=== PATIENT | male | born 1965 | race Hispanic/Latino ===

== ENCOUNTER 2017-04-25 00:19 | Emergency (ER) | payer SELFPAY | END 2017-04-25 01:19 | disposition home or self-care (01) | LOC: MADERS 00:19 | DX: R44.0 Auditory hallucinations (principal); Z79.899 Other long term (current) drug therapy; K74.60 Unspecified cirrhosis of liver | CPT/HCPCS: 99284 ==

== ENCOUNTER 2017-07-29 06:08 | Emergency (ER) | payer SELFPAY ==
[2017-07-29] MEDS ORDERED: Bacitracin Zinc 1 Packet ONE ×2 (06:53→06:54)
[2017-07-29] MEDS ORDERED: HYDROcodone/Acetaminophen 5/325 mg Tablet ONE (07:08)
[2017-07-29] MEDS ORDERED: Acetaminophen 325 MG TAB ONE (07:08)
== END 2017-07-29 07:20 | disposition home or self-care (01) ==
LOC: MADERS 06:08
DX: I87.2 Venous insufficiency (chronic) (peripheral) (principal)
CPT/HCPCS: 99283

== ENCOUNTER 2017-10-07 19:25 | Emergency (ER) | payer SELFPAY ==
[2017-10-07] MEDS ORDERED: HYDROcodone/Acetaminophen 10/325 mg Tablet ONE (20:32)
== END 2017-10-07 20:45 | disposition home or self-care (01) ==
LOC: MADERS 19:25
DX: I83.018 Varicose veins of right lower extremity with ulcer other part of lower leg (principal); I83.028 Varicose veins of left lower extremity with ulcer other part of lower leg; K74.60 Unspecified cirrhosis of liver
CPT/HCPCS: 99283

== ENCOUNTER 2018-01-16 02:01 | Emergency (ER) | payer SELFPAY | END 2018-01-16 02:45 | disposition home or self-care (01) | LOC: MADERS 02:01 | DX: Z00.8 Encounter for other general examination (principal); F32.9 Major depressive disorder, single episode, unspecified; K74.60 Unspecified cirrhosis of liver | CPT/HCPCS: 99281 ==

== ENCOUNTER 2018-01-28 04:07 | Emergency (ER) | payer SELFPAY ==
[2018-01-28] MEDS ORDERED: Morphine 4 MG/ML VIAL ONE (04:35)
[2018-01-28 05:10] LABS: ALT (SGPT) 54 U/L (8-55); AST (SGOT) 103 U/L (5-34); Albumin 3.1 g/dL (3.5-5.0); Alkaline Phosphatase 150 U/L (40-150); Anion Gap 12 mmol/L (10-20); BUN (Urea Nitrogen) 16 mg/dL (8.4-25.7); Bilirubin, Total 1.1 mg/dL (0.2-1.2); Calc. Creatinine Clearance 0 mL/min (70-130); Calcium 8.8 mg/dL (7.8-10.44); Carbon Dioxide 22 mmol/L (22-29); Chloride 112 mmol/L (98-107); Eosinophils 32 % (0-10); Estimated GFR-MDRD Greater than 90; Glucose 91 mg/dL (70-105); Hemoglobin 11.9 g/dL (14.0-18.0); Lymphocytes 30 % (21-51); MDiff Complete? YES; Mean Corpuscular HGB CONC 33.9 g/dL (32.0-36.0); Mean Corpuscular Hemoglobin 30.6 pg (27.0-31.0); Mean Corpuscular Volume 90.4 fL (78.0-98.0); Mean Platelet Volume 5.8 fL (7.4-10.4); Monocytes 4 % (0-10); Neutrophil 30 % (42-75); PLT Morphology Comment Appears Adequate; Platelet Count 249 thou/uL (130-400); Potassium 3.6 mmol/L (3.5-5.1); Protein, Total 7.1 g/dL (6.0-8.3); RBC Morphology Normal; Reactive Lymphocytes 4 % (0-10); Sodium 142 mmol/L (136-145); White Blood Cell (WBC) Count 7.3 thou/uL (4.8-10.8)
== END 2018-01-28 05:45 | disposition home or self-care (01) ==
LOC: MADERS 04:07
DX: I87.8 Other specified disorders of veins (principal); G89.29 Other chronic pain; F32.9 Major depressive disorder, single episode, unspecified; Z79.899 Other long term (current) drug therapy
CPT/HCPCS: 36415; 80053; 85025; 85652; 96372; J2270

== ENCOUNTER 2018-02-19 01:16 | Emergency (ER) | payer SELFPAY ==
[2018-02-19] MEDS ORDERED: Acetaminophen 500 MG TAB ONE (01:27)
[2018-02-19] MEDS ORDERED: Ibuprofen 800 MG TAB ONE (01:27)
== END 2018-02-19 01:56 | disposition home or self-care (01) ==
LOC: MADERS 01:16
DX: G89.29 Other chronic pain (principal); M79.604 Pain in right leg; F32.9 Major depressive disorder, single episode, unspecified; Z79.899 Other long term (current) drug therapy
CPT/HCPCS: 99283

== ENCOUNTER 2018-02-26 11:16 | Emergency (ER) | payer SELFPAY ==
[2018-02-26] MEDS ORDERED: Nitroglycerin 0.4 MG TAB (25 Tab Bottle) ONE (11:42)
[2018-02-26] MEDS ORDERED: Donnatal Elixir 16.2 MG/5 ML UDCUP ONE (11:43)
[2018-02-26] MEDS ORDERED: Mag-Al Plus 1200 MG/1200 MG/120 MG/30 ML UDCUP ONE (11:43)
[2018-02-26] MEDS ORDERED: Lidocaine Viscous Sol 2% 15 ml UD Cup ONE (11:43)
[2018-02-26 11:56] LABS: #Basophils 0.1 thou/uL (0.0-0.2); #Eosinphils 0.1 thou/uL (0.0-0.7); #Lymphocytes 0.3 thou/uL (1.20-3.40); #Monocytes 0.2 thou/uL (0.11-0.59); #Neutrophils 12.1 thou/uL (1.40-6.50); %Basophils 0.8 % (0.0-1.0); %Eosinophils 0.9 % (0.0-10.0); %Monocytes 1.2 % (0.0-10.0); %Neutrophils 95.1 % (42.0-75.0); Hemoglobin 12.6 g/dL (14.0-18.0); Mean Corpuscular HGB CONC 33.2 g/dL (32.0-36.0); Mean Corpuscular Hemoglobin 30.6 pg (27.0-31.0); Mean Corpuscular Volume 92.2 fL (78.0-98.0); Mean Platelet Volume 6.8 fL (7.4-10.4); Platelet Count 127 thou/uL (130-400); RBC Distribution Width 13.3 % (11.5-14.5); White Blood Cell (WBC) Count 12.7 thou/uL (4.8-10.8)
[2018-02-26] MEDS ORDERED: Sodium Chloride 0.9% 1,000 ML BAG ONE (12:00)
[2018-02-26] MEDS ORDERED: Sodium Chloride 0.9% 100 ML BAG ONE (12:00)
[2018-02-26] MEDS ORDERED: Nitroglycerin 2% Ointment 1 INCH/1 GM Packet ONE (12:01)
--- NOTE | 2018-02-26 12:06 | RAD ---
CHEST ONE VIEW: Indication: Chest pain Comparison: None FINDINGS: The right lung apex is excluded. Left lung is clear. Heart size is accentuated by exam technique. No definite pleural effusion or pneumothorax is evident. No acute osseous abnormality is evident. IMPRESSION: 1. Limitation of exam. 2. Mild prominence of the cardiac silhouette, much of which is related to technique. No definite acut e abnormality. POS: [facility]
[2018-02-26 12:07] LABS: ALT (SGPT) 43 U/L (8-55); AST (SGOT) 75 U/L (5-34); Albumin 3.1 g/dL (3.5-5.0); Alkaline Phosphatase 166 U/L (40-150); Anion Gap 15 mmol/L (10-20); BUN (Urea Nitrogen) 19 mg/dL (8.4-25.7); Bilirubin, Total 1.7 mg/dL (0.2-1.2); CK (CPK) 47 U/L (30-200); Calc. Creatinine Clearance 0 mL/min (70-130); Calcium 9.2 mg/dL (7.8-10.44); Carbon Dioxide 21 mmol/L (22-29); Chloride 107 mmol/L (98-107); Estimated GFR-MDRD Greater than 90; Globulin 4.4 g/dL (2.4-3.5); Glucose 127 mg/dL (70-105); Lipase 6 U/L (8-78); Potassium 3.6 mmol/L (3.5-5.1); Protein, Total 7.5 g/dL (6.0-8.3); Sodium 139 mmol/L (136-145)
[2018-02-26 12:10] LABS: CKMB 0.4 ng/mL (0-6.6); Troponin I 0.055 ng/mL (< 0.028)
[2018-02-26] MEDS ORDERED: Piperacillin/Tazobactam 3.375 GM VIAL ONE (12:52)
[2018-02-26 13:31] LABS: Bilirubin Negative (Negative); Blood, Urine Negative (Negative); Clarity Clear (Clear); Glucose, Urine (Dipstick) Negative (Negative); Leukocyte Negative (Negative); Nitrite Negative (Negative); Protein, Urine (Dipstick) Negative (Neg-Trace); Specific Gravity, Urine 1.025 (1.005-1.030)
--- NOTE | 2018-02-26 14:48 | CT ---
CT ANGIOGRAM OF CHEST: Date: 02/26/18 HISTORY: Shortness of breath, chest pain, and fever. Cirrhosis. GI bleed. COMPARISON: None. FINDINGS: CT angiogram chest performed after the intravenous administration of contrast. 3D rendering provided. Evaluation for distal embolism is limited due to phase of contrast. No proximal segmental pulmonary arterial filling defect. No pericardial effusion. The pulmonary trunk measures over 3.0 cm, abnormally dilated. Mild esophageal varices. Mild atelectatic changes in the lung bases. No pneumothorax. No effusion. No thoracic spine compression fracture. No displaced rib fracture. IMPRESSION: 1. Within limits of this exam, no proximal segmental pulmonary arterial filling defect. 2. No acute inflammatory process in the chest. 3. Moderate cardiomegaly. 4. Dilatation of pulmonary arteries suggest pulmonary arterial hypertension. POS: [facility]
--- NOTE | 2018-02-26 14:51 | CT ---
CONTRAST ENHANCED ABDOMEN AND PELVIS CT: Date: 02/26/18 INDICATION: Pain, hepatitis C, and cirrhosis. FINDINGS: There is cirrhotic morphology of the liver and an indwelling TIPS is in place. There is moderate dist ention of the gallbladder. Spleen is enlarged in size. Splenic varices are seen. Delayed phase contra st imaging of the kidneys limits assessment. There is streak artifact emanating from the left upper q uadrant, which limits visualization in this region. No free air. Bowel is limited in assessment witho ut enteric contrast. There is no ascites. Pleural based irregularity of the imaged lung bases is seen , which may be related to atelectasis. There is osseous degenerative change. IMPRESSION: 1. Cirrhotic morphology of the liver and evidence of portal hypertension. 2. TIPS stent is in place. POS: [facility]
== END 2018-02-26 14:10 | disposition home or self-care (01) ==
LOC: MADERS 11:16
DX: A41.9 Sepsis, unspecified organism (principal); R07.9 Chest pain, unspecified; I25.10 Atherosclerotic heart disease of native coronary artery without angina pectoris; F32.9 Major depressive disorder, single episode, unspecified; Z79.899 Other long term (current) drug therapy
CPT/HCPCS: 36415; 71045; 71275; 74176; 80053; 81003; 82274; 82553; 83605; 83690; 83880; 84484; 85025; 87040; 87086; 93005; 94760; 96365; J1956; J2543; J7050

== ENCOUNTER 2018-10-10 19:01 | Emergency (ER) | payer SELFPAY ==
[2018-10-10 19:22] LABS: Amphetamine Detected (NotDetected); Barbiturates Screen Not Detected (NotDetected); Benzodiazepine Screen Not Detected (NotDetected); Cocaine Metabolite Screen Not Detected (NotDetected); Methadone Not Detected (NotDetected); Methamphetamine Detected (NotDetected); Opiate Screen Not Detected (NotDetected); Phencyclidine (PCP) Not Detected (NotDetected); THC/Cannabinoid Screen Not Detected (NotDetected); Tricyclic Screen Not Detected (NotDetected)
[2018-10-10 19:23] LABS: Medtox Control Line Valid? VALID (VALID); Oxycodone Screen Not Detected (NotDetected)
[2018-10-10 19:28] LABS: #Basophils 0.1 thou/uL (0.0-0.2); #Eosinphils 0.7 thou/uL (0.0-0.7); #Lymphocytes 1.5 thou/uL (1.20-3.40); #Monocytes 0.3 thou/uL (0.11-0.59); #Neutrophils 1.2 thou/uL (1.40-6.50); %Basophils 2.8 % (0.0-1.0); %Eosinophils 17.7 % (0.0-10.0); %Lymphocytes 39.4 % (21.0-51.0); %Monocytes 7.5 % (0.0-10.0); %Neutrophils 32.7 % (42.0-75.0); Hemoglobin 10.8 g/dL (14.0-18.0); Mean Corpuscular HGB CONC 34.7 g/dL (32.0-36.0); Mean Corpuscular Hemoglobin 31.7 pg (27.0-31.0); Mean Corpuscular Volume 91.4 fL (78.0-98.0); Mean Platelet Volume 5.3 fL (7.4-10.4); Platelet Count 277 thou/uL (130-400); RBC Distribution Width 12.4 % (11.5-14.5); White Blood Cell (WBC) Count 3.7 thou/uL (4.8-10.8)
[2018-10-10 19:29] LABS: Bilirubin Small (Negative); Blood, Urine Negative (Negative); Clarity Clear (Clear); Glucose, Urine (Dipstick) Negative (Negative); Leukocyte Negative (Negative); Nitrite Negative (Negative); Protein, Urine (Dipstick) Negative (Neg-Trace)
[2018-10-10 19:31] LABS: Specific Gravity, Urine 1.025 (1.002-1.036)
[2018-10-10 19:39] LABS: Acetaminophen Less than 6.0 mcg/mL (10.0-30.0); Alcohol 14 mg/dL (Less than 10); Salicylate Less than 8.0 mg/dL (15.0-30.0)
[2018-10-10 19:41] LABS: ALT (SGPT) 33 U/L (8-55); AST (SGOT) 60 U/L (5-34); Albumin 2.8 g/dL (3.5-5.0); Alkaline Phosphatase 156 U/L (40-150); Anion Gap 12 mmol/L (10-20); BUN (Urea Nitrogen) 12 mg/dL (8.4-25.7); Bilirubin, Total 0.7 mg/dL (0.2-1.2); Calc. Creatinine Clearance 0 mL/min (70-130); Calcium 8.2 mg/dL (7.8-10.44); Carbon Dioxide 21 mmol/L (22-29); Chloride 112 mmol/L (98-107); Estimated GFR-MDRD Greater than 90; Globulin 4.3 g/dL (2.4-3.5); Glucose 98 mg/dL (70-105); Potassium 3.3 mmol/L (3.5-5.1); Protein, Total 7.1 g/dL (6.0-8.3); Sodium 142 mmol/L (136-145)
[2018-10-10] MEDS ORDERED: Potassium Chloride 20 MEQ TAB ONE (20:06)
[2018-10-10] MEDS ORDERED: Lorazepam 2 MG/ML VIAL ONE (21:52)
== END 2018-10-10 22:47 | disposition short-term general hospital (02) ==
LOC: MADERS 19:01
DX: R45.851 Suicidal ideations (principal); E87.6 Hypokalemia; I25.10 Atherosclerotic heart disease of native coronary artery without angina pectoris; F32.9 Major depressive disorder, single episode, unspecified; Z79.899 Other long term (current) drug therapy
CPT/HCPCS: 36415; 80053; 80306; 80307; 81003; 85025; 96372; J2060

== ENCOUNTER 2019-01-30 16:46 | Emergency (ER) | payer SELFPAY ==
[~2019-01-30 16:46] MED LIST: Iopamidol 370 76% 100 ML VIAL ONE; Sodium Chloride 0.9% 1,000 ML BAG ONE; Sodium Chloride 0.9% 100 ML BAG ONE; Sodium Chloride 0.9% 500 ML BAG ONE
[2019-01-30] MEDS ORDERED: Acetaminophen 500 MG TAB ONE (17:04)
[2019-01-30 17:17] LABS: #Basophils 0.1 thou/uL (0.0-0.2); #Eosinphils 0.8 thou/uL (0.0-0.7); #Lymphocytes 0.5 thou/uL (1.20-3.40); #Monocytes 0.3 thou/uL (0.11-0.59); #Neutrophils 6.1 thou/uL (1.40-6.50); %Eosinophils 10.7 % (0.0-10.0); %Lymphocytes 6.4 % (21.0-51.0); %Neutrophils 77.9 % (42.0-75.0); Hemoglobin 11.1 g/dL (14.0-18.0); Mean Corpuscular HGB CONC 33.9 g/dL (32.0-36.0); Mean Corpuscular Hemoglobin 31.1 pg (27.0-31.0); Mean Corpuscular Volume 91.8 fL (78.0-98.0); Mean Platelet Volume 5.4 fL (7.4-10.4); Platelet Count 180 thou/uL (130-400); RBC Distribution Width 13.2 % (11.5-14.5); Red Blood Cell (RBC) Count 3.57 mill/uL (4.70-6.10); White Blood Cell (WBC) Count 7.8 thou/uL (4.8-10.8)
[2019-01-30 17:29] LABS: INR-International Normal Ratio 1.3; Prothrombin Time 16.4 SEC (12.0-14.7)
--- NOTE | 2019-01-30 17:32 | RAD ---
EXAM: Right tibia and fibula 2 views: HISTORY: Infection COMPARISON: None FINDINGS: Diffuse subcutaneous fat stranding and swelling. No evidence for bony erosive or destructive changes. Degenerative changes. No acute fracture or dislocation or other significant acute osseous abnormality. IMPRESSION: Diffuse subcutaneous soft tissue swelling, given history of infection is certainly could represent ce llulitis.
[2019-01-30] MEDS ORDERED: Fentanyl 100 MCG/2 ML VIAL ONE (17:34)
[2019-01-30] MEDS ORDERED: Piperacillin/Tazobactam 4.5 GM VIAL ONE ×2 (17:34→17:36)
[2019-01-30] MEDS ORDERED: Vancomycin HCl 500 MG VIAL ONE (17:34)
[2019-01-30 17:35] LABS: ALT (SGPT) 79 U/L (8-55); AST (SGOT) 139 U/L (5-34); Acetaminophen Less than 6.0 mcg/mL (10.0-30.0); Albumin 2.9 g/dL (3.5-5.0); Alcohol Less than 10 mg/dL (Less than 10); Alkaline Phosphatase 166 U/L (40-110); Anion Gap 11 mmol/L (10-20); BUN (Urea Nitrogen) 17 mg/dL (8.4-25.7); Bilirubin, Total 1.2 mg/dL (0.2-1.2); Calc. Creatinine Clearance 0 mL/min (70-130); Calcium 8.5 mg/dL (7.8-10.44); Carbon Dioxide 22 mmol/L (22-29); Chloride 110 mmol/L (98-107); Estimated GFR-MDRD Greater than 90; Glucose 102 mg/dL (70-105); Potassium 3.9 mmol/L (3.5-5.1); Protein, Total 6.9 g/dL (6.0-8.3); Salicylate Less than 8.0 mg/dL (15.0-30.0); Sodium 139 mmol/L (136-145)
--- NOTE | 2019-01-30 18:48 | CT ---
Exam: Right lower stomach CT scan with IV contrast: HISTORY: Infection FINDINGS: There is fairly extensive diffuse subcutaneous fat stranding which certainly could represent edema or cellulitis. There is some minimal indistinction at the level of the superficial fascia of the lower extremity possibly representing some mild superficial fasciitis. No evidence for deep intramusc ular mass, abscess, or significant acute myositis or other acute process. No abnormal gas to suggest necrotizing fasciitis. No bone destruction or evidence for osteomyelitis. No abnormal joint e ffusion in the knee visualized. IMPRESSION: Extensive superficial subcutaneous fat stranding which certainly could represent cellulitis. Minimal superficial fascial fat stranding possibly mild superficial fasciitis. No evidence for deep intramuscular process or necrotizing fasciitis. If patient has persistent or worsening symptoms, consideration for nonemergent lower extremity MRI wi th and without IV contrast might be considered.
[2019-01-30 19:12] LABS: Bilirubin Negative (Negative); Blood, Urine Negative (Negative); Clarity Clear (Clear); Glucose, Urine (Dipstick) Negative (Negative); Leukocyte Negative (Negative); Nitrite Negative (Negative); Protein, Urine (Dipstick) Negative (Neg-Trace)
[2019-01-30 19:19] LABS: Cocaine Metabolite Screen Not Detected (NotDetected); Methamphetamine Detected (NotDetected); Phencyclidine (PCP) Not Detected (NotDetected); THC/Cannabinoid Screen Not Detected (NotDetected)
[2019-01-30 19:20] LABS: Amphetamine Detected (NotDetected); Barbiturates Screen Not Detected (NotDetected); Benzodiazepine Screen Not Detected (NotDetected); Medtox Control Line Valid? VALID (VALID); Methadone Not Detected (NotDetected); Opiate Screen Not Detected (NotDetected); Oxycodone Screen Not Detected (NotDetected); Tricyclic Screen Not Detected (NotDetected)
== END 2019-01-30 22:10 | disposition short-term general hospital (02) ==
LOC: MADERS 16:46
DX: L03.116 Cellulitis of left lower limb (principal); F15.10 Other stimulant abuse, uncomplicated; R74.8 Abnormal levels of other serum enzymes; I25.10 Atherosclerotic heart disease of native coronary artery without angina pectoris; F32.9 Major depressive disorder, single episode, unspecified; Z95.5 Presence of coronary angioplasty implant and graft; Z79.899 Other long term (current) drug therapy
CPT/HCPCS: 80053; 80306; 80307; 81003; 82550; 82553; 83605; 83880; 84484; 85025; 85610; 85730; 87040; 93005; 96361; 96365; 96366; 96367; 96375; J2543; J3010; J3370; J3490; J7050; Q9967

== ENCOUNTER 2019-05-06 02:39 | Emergency (ER) | payer SELFPAY ==
[2019-05-06 03:24] LABS: Anion Gap 11 mmol/L (10-20); BUN (Urea Nitrogen) 12 mg/dL (8.4-25.7); CK (CPK) 73 U/L (30-200); CRP (Inflammatory) 3.15 mg/dL (= or < 0.5); Calc. Creatinine Clearance 0 mL/min (70-130); Calcium 8.7 mg/dL (7.8-10.44); Carbon Dioxide 22 mmol/L (22-29); Chloride 110 mmol/L (98-107); Estimated GFR-MDRD Greater than 90; Glucose 103 mg/dL (70-105); Potassium 3.7 mmol/L (3.5-5.1); Sodium 139 mmol/L (136-145)
[2019-05-06 03:30] LABS: Band 1 % (5-11); Eosinophils 23 % (0-10); Hemoglobin 11.4 g/dL (14.0-18.0); Lymphocytes 32 % (21-51); MDiff Complete? YES; Mean Corpuscular HGB CONC 31.8 g/dL (32.0-36.0); Mean Corpuscular Hemoglobin 30.6 pg (27.0-31.0); Mean Corpuscular Volume 96.4 fL (78.0-98.0); Mean Platelet Volume 5.8 fL (7.4-10.4); Monocytes 3 % (0-10); Neutrophil 41 % (42-75); Platelet Count 241 thou/uL (130-400); RBC Distribution Width 13.1 % (11.5-14.5); Red Blood Cell (RBC) Count 3.72 mill/uL (4.70-6.10); White Blood Cell (WBC) Count 5.5 thou/uL (4.8-10.8)
--- NOTE | 2019-05-06 08:14 | RAD ---
FRONTAL AND LATERAL IMAGING RIGHT TIBIA AND FIBULA: DATE: 05/06/2019. COMPARISON: None. HISTORY: Cellulitis. FINDINGS: Increased density is seen within the subcutaneous fat within the right calf with skin thickening sugg esting diffuse edema, consistent with the provided history of cellulitis. No subcutaneous gas. No r adiopaque foreign body. No displaced fracture or evidence of dislocation. There is a possible small skin ulceration along the lateral aspect of the distal calf lateral to the distal left fibular shaft measuring approximately 8 mm craniocaudal dimension. IMPRESSION: Diffuse skin thickening and subcutaneous fat stranding suggests edema within the right calf, consiste nt with the provided history of cellulitis. Questionable skin ulceration seen laterally within the d istal right calf. No acute osseous abnormality. POS: [facility]
== END 2019-05-06 04:32 | disposition home or self-care (01) ==
LOC: MADERS 02:39
DX: I83.019 Varicose veins of right lower extremity with ulcer of unspecified site (principal); L97.919 Non-pressure chronic ulcer of unspecified part of right lower leg with unspecified severity; I25.10 Atherosclerotic heart disease of native coronary artery without angina pectoris; F32.9 Major depressive disorder, single episode, unspecified; Z86.19 Personal history of other infectious and parasitic diseases
CPT/HCPCS: 80048; 82550; 83605; 85025; 86140

== ENCOUNTER 2019-09-25 16:37 | Emergency (ER) | payer MEDICARE ==
[2019-09-25] MEDS ORDERED: Promethazine HCl 25 MG/ML VIAL ONE (18:14)
[2019-09-25] MEDS ORDERED: Morphine 2 MG/ML SYRINGE ONE (18:14)
[2019-09-25] MEDS ORDERED: Morphine 4 MG/ML VIAL ONE (18:14)
== END 2019-09-25 18:18 | disposition home or self-care (01) ==
LOC: MADERS 16:37
DX: M79.18 Myalgia, other site (principal); I25.10 Atherosclerotic heart disease of native coronary artery without angina pectoris; K74.60 Unspecified cirrhosis of liver; F32.9 Major depressive disorder, single episode, unspecified
CPT/HCPCS: 96372; 99283; J2270; J2550

== ENCOUNTER 2020-04-14 14:15 | Emergency (ER) | payer MEDICARE ==
[2020-04-14] MEDS ORDERED: Bacitracin 1 PK ONE (14:38)
== END 2020-04-14 14:56 | disposition home or self-care (01) ==
LOC: MADERS 14:15
DX: T22.212A Burn of second degree of left forearm, initial encounter (principal); I25.10 Atherosclerotic heart disease of native coronary artery without angina pectoris; K74.60 Unspecified cirrhosis of liver; Z79.899 Other long term (current) drug therapy; X16.XXXA Contact with hot heating appliances, radiators and pipes, initial encounter
CPT/HCPCS: 16000

== ENCOUNTER 2020-05-19 04:50 | Emergency (ER) | payer MEDICARE ==
[2020-05-19] MEDS ORDERED: Clindamycin 150 MG CAP ONE (05:21)
[2020-05-19] MEDS ORDERED: Furosemide 40 MG TAB ONE (05:21)
== END 2020-05-19 05:31 | disposition home or self-care (01) ==
LOC: MADERS 04:50
DX: I87.2 Venous insufficiency (chronic) (peripheral) (principal); R14.0 Abdominal distension (gaseous); I25.10 Atherosclerotic heart disease of native coronary artery without angina pectoris; K74.60 Unspecified cirrhosis of liver; Z79.899 Other long term (current) drug therapy

== ENCOUNTER 2020-06-01 16:50 | Emergency (ER) | payer MEDICARE ==
[2020-06-01 17:53] LABS: #Basophils 0.1 thou/uL (0.0-0.2); #Eosinphils 0.5 thou/uL (0.0-0.7); #Lymphocytes 1.2 thou/uL (1.20-3.40); #Monocytes 0.7 thou/uL (0.11-0.59); #Neutrophils 4.2 thou/uL (1.40-6.50); %Basophils 1.1 % (0.0-1.0); %Lymphocytes 18.6 % (21.0-51.0); %Monocytes 10.2 % (0.0-10.0); %Neutrophils 63.2 % (42.0-75.0); Hemoglobin 12.5 g/dL (14.0-18.0); Mean Corpuscular HGB CONC 34.6 g/dL (32.0-36.0); Mean Corpuscular Hemoglobin 32.6 pg (27.0-31.0); Mean Corpuscular Volume 94.1 fL (78.0-98.0); Mean Platelet Volume 5.9 fL (7.4-10.4); Platelet Count 163 thou/uL (130-400); RBC Distribution Width 11.5 % (11.5-14.5); Red Blood Cell (RBC) Count 3.83 mill/uL (4.70-6.10); White Blood Cell (WBC) Count 6.7 thou/uL (4.8-10.8)
[2020-06-01] MEDS ORDERED: cefTRIAXone\\ROCEPHIN 1 GM VIAL ONE (18:03)
[2020-06-01] MEDS ORDERED: Sodium Chloride 0.9% 100 ML ONE (18:03)
[2020-06-01] MEDS ORDERED: Clindamycin 150 MG CAP ONE (18:03)
[2020-06-01 18:07] LABS: Anion Gap 11 mmol/L (10-20); BUN (Urea Nitrogen) 10 mg/dL (8.4-25.7); Calc. Creatinine Clearance 0 mL/min (70-130); Calcium 8.3 mg/dL (7.8-10.44); Carbon Dioxide 25 mmol/L (22-29); Chloride 107 mmol/L (98-107); Glucose 117 mg/dL (70-105); Potassium 3.5 mmol/L (3.5-5.1); Sodium 139 mmol/L (136-145)
== END 2020-06-01 19:10 | disposition home or self-care (01) ==
LOC: MADERS 16:50
DX: L03.116 Cellulitis of left lower limb (principal); L03.115 Cellulitis of right lower limb; F17.210 Nicotine dependence, cigarettes, uncomplicated; Z79.899 Other long term (current) drug therapy
CPT/HCPCS: 36415; 36416; 80048; 83605; 85025; 96374; J0696; J3490

== ENCOUNTER 2020-10-05 11:19 | Emergency (ER) | payer MEDICARE | END 2020-10-05 12:25 | disposition home or self-care (01) | LOC: MADERS 11:19 | DX: M70.21 Olecranon bursitis, right elbow (principal); F17.290 Nicotine dependence, other tobacco product, uncomplicated | CPT/HCPCS: 99283 ==

== ENCOUNTER 2020-10-17 12:08 | Outpatient (CLI) | payer MEDICARE ==
[2020-10-17 12:56] LABS: #Basophils 0.1 thou/uL (0.0-0.2); #Eosinphils 0.5 thou/uL (0.0-0.7); #Lymphocytes 1.2 thou/uL (1.20-3.40); #Monocytes 0.3 thou/uL (0.11-0.59); #Neutrophils 1.6 thou/uL (1.40-6.50); %Basophils 1.7 % (0.0-1.0); %Eosinophils 13.3 % (0.0-10.0); %Lymphocytes 31.7 % (21.0-51.0); %Monocytes 9.3 % (0.0-10.0); Hemoglobin 11.2 g/dL (14.0-18.0); Mean Corpuscular HGB CONC 33.1 g/dL (32.0-36.0); Mean Corpuscular Hemoglobin 31.9 pg (27.0-31.0); Mean Corpuscular Volume 96.4 fL (78.0-98.0); Mean Platelet Volume 6.9 fL (7.4-10.4); Platelet Count 172 thou/uL (130-400); Red Blood Cell (RBC) Count 3.53 mill/uL (4.70-6.10); White Blood Cell (WBC) Count 3.6 thou/uL (4.8-10.8)
[2020-10-17 12:59] LABS: INR-International Normal Ratio 1.2; Prothrombin Time 15.3 sec (12.0-14.7)
[2020-10-17 13:00] LABS: PTT 44.1 sec (22.9-36.1)
[2020-10-17 13:11] LABS: ALT (SGPT) 33 U/L (8-55); AST (SGOT) 75 U/L (5-34); Albumin 2.6 g/dL (3.5-5.0); Alkaline Phosphatase 188 U/L (40-110); Anion Gap 10 mmol/L (10-20); BUN (Urea Nitrogen) 8 mg/dL (8.4-25.7); Bilirubin, Total 1.3 mg/dL (0.2-1.2); Calc. Creatinine Clearance 0 mL/min (70-130); Carbon Dioxide 22 mmol/L (22-29); Chloride 109 mmol/L (98-107); Globulin 4.4 g/dL (2.4-3.5); Glucose 115 mg/dL (70-105); Potassium 3.1 mmol/L (3.5-5.1); Sodium 138 mmol/L (136-145)
[2020-10-17 17:38] LABS: Hep C IgG Ab Reflex HepC Qnt (NonReactive); Hep C Index 13.47 S/CO (0-0.79)
== END 2020-10-17 12:09 | disposition home or self-care (01) ==
LOC: MADLAB 12:08
PROVIDERS: ATTEND Family Medicine
DX: Z13.9 Encounter for screening, unspecified (principal); L03.112 Cellulitis of left axilla; L03.115 Cellulitis of right lower limb; I87.2 Venous insufficiency (chronic) (peripheral); K74.60 Unspecified cirrhosis of liver
CPT/HCPCS: 80053; 85025; 85610; 85730; 86803; 87522

== ENCOUNTER 2021-01-21 12:39 | Emergency (ER) | payer MEDICARE | END 2021-01-21 14:18 | disposition home or self-care (01) | LOC: MADERS 12:39 | DX: S93.432A Sprain of tibiofibular ligament of left ankle, initial encounter (principal); I25.10 Atherosclerotic heart disease of native coronary artery without angina pectoris; K74.60 Unspecified cirrhosis of liver; F17.290 Nicotine dependence, other tobacco product, uncomplicated; Z79.899 Other long term (current) drug therapy; X58.XXXA Exposure to other specified factors, initial encounter ==

== ENCOUNTER 2021-04-26 14:59 | Emergency (ER) | payer MEDICARE ==
[2021-04-26] MEDS ORDERED: Ibuprofen 400 MG TAB ONE (15:39)
[2021-04-26 15:55] LABS: #Basophils 0.1 thou/uL (0.0-0.2); #Eosinphils 0.4 thou/uL (0.0-0.7); #Lymphocytes 0.8 thou/uL (1.20-3.40); #Monocytes 0.6 thou/uL (0.11-0.59); #Neutrophils 5.7 thou/uL (1.40-6.50); %Basophils 1.7 % (0.0-1.0); %Eosinophils 5.3 % (0.0-10.0); %Lymphocytes 10.8 % (21.0-51.0); %Monocytes 7.7 % (0.0-10.0); %Neutrophils 74.4 % (42.0-75.0); Hemoglobin 12.4 g/dL (14.0-18.0); Mean Corpuscular HGB CONC 32.8 g/dL (32.0-36.0); Mean Corpuscular Hemoglobin 31.7 pg (27.0-31.0); Mean Corpuscular Volume 96.7 fL (78.0-98.0); Mean Platelet Volume 5.1 fL (7.4-10.4); Platelet Count 188 thou/uL (130-400); RBC Distribution Width 12.6 % (11.5-14.5); White Blood Cell (WBC) Count 7.6 thou/uL (4.8-10.8)
[2021-04-26 16:06] LABS: ALT (SGPT) 45 U/L (8-55); AST (SGOT) 88 U/L (5-34); Albumin 2.5 g/dL (3.5-5.0); Alkaline Phosphatase 126 U/L (40-110); Anion Gap 9 mmol/L (10-20); BUN (Urea Nitrogen) 10 mg/dL (8.4-25.7); Bilirubin, Total 1.8 mg/dL (0.2-1.2); CK (CPK) 73 U/L (30-200); CRP (Inflammatory) 8.72 mg/dL (= or < 0.5); Calc. Creatinine Clearance 0 mL/min (70-130); Calcium 8.5 mg/dL (7.8-10.44); Carbon Dioxide 23 mmol/L (22-29); Chloride 108 mmol/L (98-107); Globulin 5.3 g/dL (2.4-3.5); Glucose 119 mg/dL (70-105); Potassium 3.5 mmol/L (3.5-5.1); Protein, Total 7.8 g/dL (6.0-8.3); Sodium 136 mmol/L (136-145)
[2021-04-26 16:52] LABS: Bilirubin Negative (Negative); Blood, Urine Moderate (Negative); Glucose, Urine (Dipstick) Negative (Negative); Ketone, Urine Negative (Negative); Leukocyte Negative (Negative); Nitrite Positive (Negative); Protein, Urine (Dipstick) Negative (Neg-Trace); Specific Gravity, Urine 1.025 (1.005-1.030)
[2021-04-26 16:57] LABS: Clarity Hazy (Clear)
[2021-04-26 16:58] LABS: Bacteria/HPF 1+ HPF (None Seen); Squamous Epithelial 0-3 HPF (0-3); WBC/HPF 0-3 HPF (0-3)
[2021-04-26 17:00] LABS: Amphetamine Detected (NotDetected); Barbiturates Screen Not Detected (NotDetected); Benzodiazepine Screen Not Detected (NotDetected); Cocaine Metabolite Screen Not Detected (NotDetected); Medtox Control Line Valid? VALID (VALID); Methadone Not Detected (NotDetected); Methamphetamine Detected (NotDetected); Opiate Screen Detected (NotDetected); Oxycodone Screen Not Detected (NotDetected); Phencyclidine (PCP) Not Detected (NotDetected); THC/Cannabinoid Screen Not Detected (NotDetected); Tricyclic Screen Not Detected (NotDetected)
[2021-04-26] MEDS ORDERED: Furosemide 40 MG/4 ML VIAL ONE (17:08)
[2021-04-26] MEDS ORDERED: Clindamycin 150 MG CAP ONE (17:17)
[2021-04-26] MEDS ORDERED: Sodium Chloride 0.9% 100 ML ONE (17:17)
[2021-04-26] MEDS ORDERED: cefTRIAXone\\ROCEPHIN 2 GM VIAL ONE (17:17)
[2021-04-27 17:10] LABS: SARS-CoV-2 PCR by NAA Not Detected (NotDetected)
== END 2021-04-26 17:48 | disposition home or self-care (01) ==
LOC: MADERS 14:59
DX: N39.0 Urinary tract infection, site not specified (principal); L03.116 Cellulitis of left lower limb; L03.115 Cellulitis of right lower limb; K72.10 Chronic hepatic failure without coma; F15.10 Other stimulant abuse, uncomplicated; Z20.822 Contact with and (suspected) exposure to COVID-19; I25.10 Atherosclerotic heart disease of native coronary artery without angina pectoris; F17.210 Nicotine dependence, cigarettes, uncomplicated
CPT/HCPCS: 71045; 80053; 80306; 81003; 81015; 82550; 83605; 85025; 86140; 87040; 87086; 87804; 96365; 96375; J0696; J1940; J3490; U0003; U0005

== ENCOUNTER 2021-05-04 17:18 | Emergency (ER) | payer MEDICARE ==
[2021-05-04 18:11] LABS: #Basophils 0.1 thou/uL (0.0-0.2); #Eosinphils 0.6 thou/uL (0.0-0.7); #Lymphocytes 1.1 thou/uL (1.20-3.40); #Monocytes 0.3 thou/uL (0.11-0.59); #Neutrophils 1.3 thou/uL (1.40-6.50); %Basophils 2.9 % (0.0-1.0); %Eosinophils 18.3 % (0.0-10.0); %Lymphocytes 32.7 % (21.0-51.0); %Monocytes 8.6 % (0.0-10.0); %Neutrophils 37.5 % (42.0-75.0); Hemoglobin 11.8 g/dL (14.0-18.0); Mean Corpuscular HGB CONC 33.5 g/dL (32.0-36.0); Mean Corpuscular Hemoglobin 31.7 pg (27.0-31.0); Mean Corpuscular Volume 94.5 fL (78.0-98.0); Mean Platelet Volume 5.1 fL (7.4-10.4); Platelet Count 232 thou/uL (130-400); Red Blood Cell (RBC) Count 3.73 mill/uL (4.70-6.10); White Blood Cell (WBC) Count 3.3 thou/uL (4.8-10.8)
[2021-05-04 18:34] LABS: ALT (SGPT) 59 U/L (8-55); AST (SGOT) 136 U/L (5-34); Albumin 2.4 g/dL (3.5-5.0); Alkaline Phosphatase 144 U/L (40-110); Anion Gap 14 mmol/L (10-20); BUN (Urea Nitrogen) 10 mg/dL (8.4-25.7); Bilirubin, Total 1.4 mg/dL (0.2-1.2); Calc. Creatinine Clearance 0 mL/min (70-130); Calcium 8.8 mg/dL (7.8-10.44); Carbon Dioxide 23 mmol/L (22-29); Chloride 106 mmol/L (98-107); Globulin 5.9 g/dL (2.4-3.5); Glucose 91 mg/dL (70-105); Potassium 3.3 mmol/L (3.5-5.1); Protein, Total 8.3 g/dL (6.0-8.3); Sodium 140 mmol/L (136-145)
[2021-05-04 18:47] LABS: Acetaminophen Less than 6.0 mcg/mL (10.0-30.0); Alcohol Less than 10 mg/dL (Less than 10); Magnesium 1.6 mg/dL (1.6-2.6); Salicylate Less than 8.0 mg/dL (15.0-30.0)
[2021-05-04 18:52] LABS: CKMB 4.5 ng/mL (0-6.6)
[2021-05-04 19:43] LABS: Bilirubin Small (Negative); Blood, Urine Trace (Negative); Clarity Clear (Clear); Glucose, Urine (Dipstick) Negative (Negative); Ketone, Urine Negative (Negative); Leukocyte Negative (Negative); Nitrite Negative (Negative); Protein, Urine (Dipstick) Trace mg/dL (Neg-Trace)
[2021-05-04 19:51] LABS: Bacteria/HPF None Seen HPF (None Seen); RBC/HPF 0-3 HPF (0-3); Specific Gravity, Urine 1.025 (1.002-1.036); Squamous Epithelial 0-3 HPF (0-3); WBC/HPF 0-3 HPF (0-3)
[2021-05-04 20:08] LABS: Amphetamine Detected (NotDetected); Barbiturates Screen Not Detected (NotDetected); Benzodiazepine Screen Not Detected (NotDetected); Cocaine Metabolite Screen Not Detected (NotDetected); Medtox Control Line Valid? VALID (VALID); Methadone Not Detected (NotDetected); Methamphetamine Detected (NotDetected); Opiate Screen Detected (NotDetected); Oxycodone Screen Not Detected (NotDetected); Phencyclidine (PCP) Not Detected (NotDetected); THC/Cannabinoid Screen Not Detected (NotDetected); Tricyclic Screen Not Detected (NotDetected)
[2021-05-04 22:12] LABS: Troponin I 0.048 ng/mL (< 0.028)
== END 2021-05-04 22:43 | disposition home or self-care (01) ==
LOC: MADERS 17:18
DX: R53.1 Weakness (principal); F15.20 Other stimulant dependence, uncomplicated; R14.0 Abdominal distension (gaseous); R77.8 Other specified abnormalities of plasma proteins; L97.529 Non-pressure chronic ulcer of other part of left foot with unspecified severity; L97.519 Non-pressure chronic ulcer of other part of right foot with unspecified severity; F17.210 Nicotine dependence, cigarettes, uncomplicated; I87.2 Venous insufficiency (chronic) (peripheral); I25.10 Atherosclerotic heart disease of native coronary artery without angina pectoris; Z87.19 Personal history of other diseases of the digestive system; Z95.5 Presence of coronary angioplasty implant and graft
CPT/HCPCS: 36415; 71045; 80053; 80306; 80307; 81003; 81015; 82140; 82553; 83735; 83880; 84443; 84484; 85025; 87086; 93005

== ENCOUNTER 2021-05-31 21:29 | Emergency (ER) | payer MEDICARE ==
[2021-05-31 21:59] LABS: #Basophils 0.1 thou/uL (0.0-0.2); #Eosinphils 0.2 thou/uL (0.0-0.7); #Monocytes 0.6 thou/uL (0.11-0.59); #Neutrophils 10.4 thou/uL (1.40-6.50); %Basophils 1.1 % (0.0-1.0); %Eosinophils 1.8 % (0.0-10.0); %Lymphocytes 8.4 % (21.0-51.0); %Neutrophils 83.7 % (42.0-75.0); Hemoglobin 12.3 g/dL (14.0-18.0); Mean Corpuscular Hemoglobin 32.2 pg (27.0-31.0); Mean Corpuscular Volume 94.7 fL (78.0-98.0); Mean Platelet Volume 5.6 fL (7.4-10.4); Platelet Count 161 thou/uL (130-400); RBC Distribution Width 12.7 % (11.5-14.5); Red Blood Cell (RBC) Count 3.82 mill/uL (4.70-6.10); White Blood Cell (WBC) Count 12.4 thou/uL (4.8-10.8)
[2021-05-31 22:16] LABS: Base Excess-Venous -1.3 mmol/L (-2.0 to 3.0); Bicarbonate (HCO3v) 23.4 mmol/L (22.0-28.0); CO2 Tension (PvCO2) 38.4 mmHg (42.0-51.0); Calcium, Ionized 1.16 mmol/L (1.15-1.33); Chloride 106 mmol/L (98-107); Hemoglobin - Calc 12.7 g/dL (14.0-18.0); Potassium 3.8 mmol/L (3.5-5.1); Sodium 139 mmol/L (138-145); T. Carbon Dioxide 24.6 mmol/L (22.0-28.0); vO2 Saturation-calc 99.2 % (60.0-85.0)
[2021-05-31 22:19] LABS: ALT (SGPT) 35 U/L (8-55); AST (SGOT) 71 U/L (5-34); Acetaminophen Less than 6.0 mcg/mL (10.0-30.0); Albumin 2.3 g/dL (3.5-5.0); Alcohol Less than 10 mg/dL (Less than 10); Alkaline Phosphatase 151 U/L (40-110); Anion Gap 10 mmol/L (10-20); BUN (Urea Nitrogen) 11 mg/dL (8.4-25.7); Bilirubin, Total 1.8 mg/dL (0.2-1.2); Calc. Creatinine Clearance 0 mL/min (70-130); Calcium 7.9 mg/dL (7.8-10.44); Carbon Dioxide 22 mmol/L (22-29); Chloride 107 mmol/L (98-107); Globulin 5.5 g/dL (2.4-3.5); Glucose 99 mg/dL (70-105); Lipase 28 U/L (8-78); Magnesium 1.5 mg/dL (1.6-2.6); Potassium 3.7 mmol/L (3.5-5.1); Protein, Total 7.8 g/dL (6.0-8.3); Salicylate Less than 8.0 mg/dL (15.0-30.0); Sodium 135 mmol/L (136-145)
[2021-05-31 22:37] LABS: CKMB 0.7 ng/mL (0-6.6)
[2021-05-31 22:44] LABS: Amphetamine Detected (NotDetected); Barbiturates Screen Not Detected (NotDetected); Benzodiazepine Screen Not Detected (NotDetected); Cocaine Metabolite Screen Not Detected (NotDetected); Medtox Control Line Valid? VALID (VALID); Methadone Not Detected (NotDetected); Methamphetamine Detected (NotDetected); Opiate Screen Not Detected (NotDetected); Oxycodone Screen Not Detected (NotDetected); Phencyclidine (PCP) Not Detected (NotDetected); THC/Cannabinoid Screen Not Detected (NotDetected); Tricyclic Screen Not Detected (NotDetected)
[2021-05-31 22:45] LABS: SARS-CoV-2 NAA Rapid Test Not Detected (NotDetected)
[2021-05-31] MEDS ORDERED: Magnesium 2 GM/50 ML BAG (IN WATER) ONE (22:50)
[2021-05-31] MEDS ORDERED: Azithromycin 250 MG TAB ONE (23:31)
[2021-06-01] MEDS ORDERED: Ketorolac Tromethamine 30 MG/ML VIAL ONE (00:11)
== END 2021-06-01 01:14 | disposition home or self-care (01) ==
LOC: MADERS 21:29
DX: J06.9 Acute upper respiratory infection, unspecified (principal); Z20.822 Contact with and (suspected) exposure to COVID-19; I25.10 Atherosclerotic heart disease of native coronary artery without angina pectoris; F17.210 Nicotine dependence, cigarettes, uncomplicated; Z79.899 Other long term (current) drug therapy
CPT/HCPCS: 0240U; 71045; 80053; 80306; 80307; 82330; 82435; 82553; 82803; 83605; 83690; 83735; 83880; 84132; 84295; 84484; 85014; 85025; 87040; 93005; 36415; 96365; 96375; J1885; J3475

== ENCOUNTER 2021-06-12 09:23 | Emergency (ER) | payer MEDICARE | END 2021-06-12 13:28 | disposition short-term general hospital (02) | LOC: MADERS 09:23 | DX: I87.333 Chronic venous hypertension (idiopathic) with ulcer and inflammation of bilateral lower extremity (principal); R60.0 Localized edema; I25.10 Atherosclerotic heart disease of native coronary artery without angina pectoris; F17.290 Nicotine dependence, other tobacco product, uncomplicated | CPT/HCPCS: 99284 ==

== ENCOUNTER 2022-04-10 17:02 | Emergency (ER) | payer MEDICARE ==
[2022-04-10] MEDS ORDERED: Doxycycline 100 MG CAP ONE (18:00)
[2022-04-10] MEDS ORDERED: Cephalexin 500 MG CAP ONE (18:00)
== END 2022-04-10 18:04 | disposition home or self-care (01) ==
LOC: MADERS 17:02
DX: L73.9 Follicular disorder, unspecified (principal); F17.290 Nicotine dependence, other tobacco product, uncomplicated
CPT/HCPCS: 87070; 87077; 87186; 87205; 99283

== ENCOUNTER 2022-06-09 14:27 | Emergency (ER) | payer MEDICARE ==
[2022-06-09] MEDS ORDERED: Ketorolac Tromethamine 60 MG/2 ML VIAL ONE (15:21)
[2022-06-09] MEDS ORDERED: Lidocaine 1% (PF) 30 ML VIAL ONE (16:13)
== END 2022-06-09 16:30 | disposition home or self-care (01) ==
LOC: MADERS 14:27
DX: R22.31 Localized swelling, mass and lump, right upper limb (principal); I25.10 Atherosclerotic heart disease of native coronary artery without angina pectoris; F17.210 Nicotine dependence, cigarettes, uncomplicated; Z95.5 Presence of coronary angioplasty implant and graft; Z79.899 Other long term (current) drug therapy
CPT/HCPCS: 36416; 96372; 99283; J1885; J2001

== ENCOUNTER 2023-03-10 21:38 | Emergency (ER) | payer MEDICARE ==
[2023-03-10] MEDS ORDERED: Diazepam 10 MG/2 ML SYRINGE ONE (21:50)
[2023-03-10 22:03] LABS: #Eosinphils 0.1 thou/uL (0.0-0.7); #Lymphocytes 0.8 thou/uL (1.20-3.40); #Monocytes 0.3 thou/uL (0.11-0.59); #Neutrophils 8.7 thou/uL (1.40-6.50); %Basophils 0.2 % (0.0-1.0); %Eosinophils 0.5 % (0.0-10.0); %Lymphocytes 7.8 % (21.0-51.0); %Monocytes 2.5 % (0.0-10.0); Hematocrit 34.4 % (42.0-52.0); Hemoglobin 11.5 g/dL (14.0-18.0); Mean Corpuscular HGB CONC 33.4 g/dL (32.0-36.0); Mean Corpuscular Hemoglobin 33.1 pg (27.0-31.0); Mean Corpuscular Volume 99.3 fl (78.0-98.0); Mean Platelet Volume 6.1 fL (7.4-10.4); Platelet Count 157 10x3/uL (130-400); RBC Distribution Width 13.3 % (11.5-14.5); Red Blood Cell (RBC) Count 3.47 mill/uL (4.70-6.10); White Blood Cell (WBC) Count 9.8 10x3/uL (4.8-10.8)
[2023-03-10] MEDS ORDERED: Piperacillin/Tazobactam 3.375 GM VIAL ONE (22:05)
[2023-03-10] MEDS ORDERED: Sodium Chloride 0.9% 2,000 ML ONE (22:05)
[2023-03-10] MEDS ORDERED: Sodium Chloride 0.9% 100 ML ONE (22:05)
[2023-03-10 22:22] LABS: ALT (SGPT) 28 U/L (8-55); AST (SGOT) 64 U/L (5-34); Alkaline Phosphatase 186 U/L (40-110); Anion Gap 12 mmol/L (10-20); BUN (Urea Nitrogen) 13 mg/dL (8.4-25.7); Bilirubin, Total 1.1 mg/dL (0.2-1.2); CK (CPK) 75 U/L (30-200); Calc. Creatinine Clearance 0 mL/min (70-130); Calcium 7.5 mg/dL (7.8-10.44); Carbon Dioxide 17 mmol/L (22-29); Chloride 112 mmol/L (98-107); Estimated GFR 106; Glucose 149 mg/dL (70-105); Potassium 3.6 mmol/L (3.5-5.1); Sodium 137 mmol/L (136-145)
[2023-03-10 22:23] LABS: Troponin I 0.046 ng/mL (< 0.028)
[2023-03-10] MEDS ORDERED: Sodium Chloride 0.9% 250 ML 250 ML ONE (22:25)
[2023-03-10] MEDS ORDERED: Vancomycin 1 GM VIAL ONE (22:25)
[2023-03-10] MEDS ORDERED: Acetaminophen 500 MG TAB ONE (22:42)
[2023-03-10] MEDS ORDERED: fentaNYL 50 mcg/mL 1 mL Vial ONE (22:59)
== END 2023-03-10 23:18 | disposition short-term general hospital (02) ==
LOC: MADERS 21:38
DX: A41.9 Sepsis, unspecified organism (principal); L03.115 Cellulitis of right lower limb; L03.116 Cellulitis of left lower limb; B18.2 Chronic viral hepatitis C; K74.60 Unspecified cirrhosis of liver
CPT/HCPCS: 36416; 80053; 82550; 83605; 84484; 85025; 87040; 87149; 93005; 96365; 96367; 96375; J2543; J3010; J3360; J3370; J3490; J7050

== ENCOUNTER 2023-05-01 22:51 | Emergency (ER) | payer MEDICARE ==
[2023-05-01] MEDS ORDERED: Ibuprofen 800 MG TAB ONE (23:31)
== END 2023-05-02 00:53 | disposition home or self-care (01) ==
LOC: MADERS 22:51
DX: S22.41XA Multiple fractures of ribs, right side, initial encounter for closed fracture (principal); F17.210 Nicotine dependence, cigarettes, uncomplicated; K21.9 Gastro-esophageal reflux disease without esophagitis; Z79.899 Other long term (current) drug therapy; W19.XXXA Unspecified fall, initial encounter
CPT/HCPCS: 94799

== ENCOUNTER 2023-05-13 16:00 | Emergency (ER) | payer MEDICARE | END 2023-05-13 17:22 | disposition home or self-care (01) | LOC: MADERS 16:00 | DX: S22.39XA Fracture of one rib, unspecified side, initial encounter for closed fracture (principal); R05.9 Cough, unspecified; I25.10 Atherosclerotic heart disease of native coronary artery without angina pectoris; F17.290 Nicotine dependence, other tobacco product, uncomplicated; X58.XXXA Exposure to other specified factors, initial encounter | CPT/HCPCS: 71046 ==

== ENCOUNTER 2023-06-14 13:51 | Emergency (ER) | payer MEDICARE | END 2023-06-14 14:16 | disposition left against medical advice (07) | LOC: MADERS 13:51 | DX: Z53.21 Procedure and treatment not carried out due to patient leaving prior to being seen by health care provider (principal) ==

== ENCOUNTER 2023-06-20 01:30 | Emergency (ER) | payer MEDICARE ==
[2023-06-20] MEDS ORDERED: Piperacillin/Tazobactam 4.5 GM VIAL ONE (02:04)
[2023-06-20] MEDS ORDERED: Sodium Chloride 0.9% 100 ML ONE (02:05)
[2023-06-20] MEDS ORDERED: Dextrose 5% in Water 250 ML ONE (02:05)
[2023-06-20] MEDS ORDERED: Vancomycin 1 GM VIAL ONE (02:05)
[2023-06-20] MEDS ORDERED: Ketorolac Tromethamine 30 MG (1 mL) VIAL ONE (02:09)
[2023-06-20] MEDS ORDERED: Acetaminophen 325 MG TAB ONE (02:28)
[2023-06-20 02:29] LABS: Band 13 % (5-11); Hematocrit 38.8 % (42.0-52.0); Hemoglobin 13.2 g/dL (14.0-18.0); Lymphocytes 4 % (21-51); MDiff Complete? YES; Macrocytosis SLIGHT = 6-15 cells (100X) (0-5/hpf); Mean Corpuscular HGB CONC 34.1 g/dL (32.0-36.0); Mean Corpuscular Hemoglobin 33.6 pg (27.0-31.0); Mean Corpuscular Volume 98.6 fl (78.0-98.0); Monocytes 2 % (0-10); Neutrophil 81 % (42-75); Platelet Adequacy Comment Appears Adequate; Platelet Count 134 10x3/uL (130-400); RBC Distribution Width 12.5 % (11.5-14.5); Red Blood Cell (RBC) Count 3.93 mill/uL (4.70-6.10); Toxic Granulation SLIGHT; White Blood Cell (WBC) Count 16.8 10x3/uL (4.8-10.8)
[2023-06-20 02:30] LABS: Albumin 2.4 g/dL (3.5-5.0); Anion Gap 11 mmol/L (10-20); BUN (Urea Nitrogen) 20 mg/dL (8.4-25.7); Bilirubin, Total 2.4 mg/dL (0.2-1.2); Calc. Creatinine Clearance 0 mL/min (70-130); Calcium 8.4 mg/dL (7.8-10.44); Carbon Dioxide 18 mmol/L (22-29); Chloride 111 mmol/L (98-107); Estimated GFR 105; Glucose 126 mg/dL (70-105); Potassium 4.1 mmol/L (3.5-5.1); Protein, Total 7.8 g/dL (6.0-8.3); Sodium 136 mmol/L (136-145)
[2023-06-20 02:31] LABS: ALT (SGPT) 42 U/L (8-55); AST (SGOT) 79 U/L (5-34); Alkaline Phosphatase 181 U/L (40-110); Globulin 5.4 g/dL (2.4-3.5)
[2023-06-20 03:02] LABS: Influenza A by NAA Not Detected (NotDetected); Influenza B by NAA Not Detected (NotDetected); SARS-CoV-2 NAA Rapid Test Not Detected (NotDetected)
[2023-06-20] MEDS ORDERED: Iopamidol 370 76% 100 ML VIAL ONE (09:00)
== END 2023-06-20 10:30 | disposition short-term general hospital (02) ==
LOC: MADERS 01:30
DX: A41.9 Sepsis, unspecified organism (principal); R60.0 Localized edema; K74.60 Unspecified cirrhosis of liver; L97.319 Non-pressure chronic ulcer of right ankle with unspecified severity; F17.290 Nicotine dependence, other tobacco product, uncomplicated
CPT/HCPCS: 0240U; 71045; 74177; 80053; 82140; 83605; 85025; 87040; 87077; 87149 ×2; 87186; 36415; 96365; 96367; J1885; J2543; J3370; J3490; J7070; Q9967

== ENCOUNTER 2024-01-15 11:24 | Emergency (ER) | payer MEDICARE ==
[2024-01-15 12:16] LABS: #Basophils 0.1 thou/uL (0.0-0.2); #Eosinphils 0.7 thou/uL (0.0-0.7); #Monocytes 0.2 thou/uL (0.11-0.59); #Neutrophils 1.9 thou/uL (1.40-6.50); %Basophils 1.7 % (0.0-1.0); %Eosinophils 18.6 % (0.0-10.0); %Lymphocytes 25.2 % (21.0-51.0); %Monocytes 4.8 % (0.0-10.0); %Neutrophils 49.7 % (42.0-75.0); Hematocrit 33.8 % (42.0-52.0); Hemoglobin 11.6 g/dL (14.0-18.0); Mean Corpuscular HGB CONC 34.2 g/dL (32.0-36.0); Mean Corpuscular Hemoglobin 33.7 pg (27.0-31.0); Mean Corpuscular Volume 98.4 fl (78.0-98.0); Platelet Count 144 10x3/uL (130-400); RBC Distribution Width 12.8 % (11.5-14.5); Red Blood Cell (RBC) Count 3.44 mill/uL (4.70-6.10); White Blood Cell (WBC) Count 3.8 10x3/uL (4.8-10.8)
[2024-01-15 12:19] LABS: ALT (SGPT) 26 U/L (8-55); AST (SGOT) 49 U/L (5-34); Albumin 2.1 g/dL (3.5-5.0); Alkaline Phosphatase 134 U/L (40-110); Anion Gap 9 mmol/L (10-20); BUN (Urea Nitrogen) 9 mg/dL (8.4-25.7); Bilirubin, Total 1.4 mg/dL (0.2-1.2); Calc. Creatinine Clearance 0 mL/min (70-130); Calcium 7.3 mg/dL (7.8-10.44); Carbon Dioxide 21 mmol/L (22-29); Chloride 112 mmol/L (98-107); Estimated GFR 109; Globulin 4.1 g/dL (2.4-3.5); Glucose 142 mg/dL (70-105); Potassium 2.8 mmol/L (3.5-5.1); Protein, Total 6.2 g/dL (6.0-8.3); Sodium 139 mmol/L (136-145)
[2024-01-15 12:22] LABS: INR-International Normal Ratio 1.3; Prothrombin Time 16.3 sec (12.0-14.7)
[2024-01-15 12:23] LABS: PTT 33.9 sec (22.9-36.1)
[2024-01-15 12:32] LABS: D-Dimer Test 3.3 mcg/mL (0.27-0.43)
[2024-01-15 12:41] LABS: Magnesium 1.7 mg/dL (1.6-2.6)
[2024-01-15] MEDS ORDERED: Potassium Chloride 20 MEQ TAB ONE (13:02)
[2024-01-15] MEDS ORDERED: Sodium Chloride 0.9% 100 ML ONE (13:40)
[2024-01-15] MEDS ORDERED: Cefepime 2 GM VIAL ONE (13:40)
[2024-01-15] MEDS ORDERED: Sodium Chloride 0.9% 500 ML ONE (14:18)
[2024-01-15] MEDS ORDERED: Vancomycin 1 GM VIAL ONE (14:18)
== END 2024-01-15 18:10 | disposition short-term general hospital (02) ==
LOC: MADERS 11:24
DX: B87.0 Cutaneous myiasis (principal); K74.60 Unspecified cirrhosis of liver; R79.89 Other specified abnormal findings of blood chemistry; E83.51 Hypocalcemia; E87.6 Hypokalemia; F17.290 Nicotine dependence, other tobacco product, uncomplicated
CPT/HCPCS: 80053; 83605; 83735; 85025; 85379; 85610; 85730; 86140; 87040; 96365; 96366; 96367; J0692; J3370; J7030

== ENCOUNTER 2024-03-30 04:47 | Emergency (ER) | payer MEDICARE ==
[2024-03-30 05:25] LABS: #Basophils 0.1 thou/uL (0.0-0.2); #Eosinophils 0.4 thou/uL (0.0-0.7); #Lymphocytes 1.3 thou/uL (1.20-3.40); #Monocytes 0.6 thou/uL (0.11-0.59); #Neutrophils 3.3 thou/uL (1.40-6.50); %Basophils 1.3 % (0.0-1.0); %Eosinophils 7.4 % (0.0-10.0); %Monocytes 10.1 % (0.0-10.0); %Neutrophils 58.3 % (42.0-75.0); Hematocrit 37.2 % (42.0-52.0); Hemoglobin 12.5 g/dL (14.0-18.0); Mean Corpuscular HGB CONC 33.7 g/dL (32.0-36.0); Mean Corpuscular Hemoglobin 32.9 pg (27.0-31.0); Mean Corpuscular Volume 97.5 fl (78.0-98.0); Mean Platelet Volume 6.6 fL (7.4-10.4); Platelet Count 168 10x3/uL (130-400); RBC Distribution Width 12.5 % (11.5-14.5); Red Blood Cell (RBC) Count 3.81 mill/uL (4.70-6.10); White Blood Cell (WBC) Count 5.7 10x3/uL (4.8-10.8)
[2024-03-30 05:41] LABS: ALT (SGPT) 28 U/L (8-55); AST (SGOT) 55 U/L (5-34); Albumin 1.8 g/dL (3.5-5.0); Alkaline Phosphatase 141 U/L (40-110); Anion Gap 10 mmol/L (10-20); BUN (Urea Nitrogen) 11 mg/dL (8.4-25.7); Bilirubin, Total 1.3 mg/dL (0.2-1.2); Calc. Creatinine Clearance 0 mL/min (70-130); Carbon Dioxide 19 mmol/L (22-29); Chloride 108 mmol/L (98-107); Estimated GFR 107; Globulin 5.4 g/dL (2.4-3.5); Glucose 127 mg/dL (70-105); Potassium 3.5 mmol/L (3.5-5.1); Protein, Total 7.2 g/dL (6.0-8.3); Sodium 133 mmol/L (136-145)
[2024-03-30] MEDS ORDERED: Sodium Chloride 0.9% 100 ML ONE (06:26)
[2024-03-30] MEDS ORDERED: cefTRIAXone (ROCEPHIN) 2 GM VIAL ONE (06:26)
[2024-03-30 07:42] LABS: Bilirubin Moderate (Negative); Blood, Urine Large (Negative); Clarity Slightly Cloudy (Clear); Glucose, Urine (Dipstick) 100 mg/dL (Negative); Ketone, Urine Negative (Negative); Leukocyte Negative (Negative); Nitrite Negative (Negative); Protein, Urine (Dipstick) 100 mg/dL (Neg-Trace); Specific Gravity, Urine 1.025 (1.005-1.030); Urobilinogen > or = 8.0 mg/dL (Less than 2); pH, Urine 6.5 (5.0-9.0)
[2024-03-30 07:45] LABS: CAUTI Indications for Culture Pelvic or flank pain; RBC/HPF Greater than 50 HPF (0-3)
[2024-03-30 07:46] LABS: Bacteria/HPF 1+ HPF (None Seen); Squamous Epithelial 0-3 HPF (0-3)
[2024-03-30 07:48] LABS: Urine Culture Reflex No No
== END 2024-03-30 08:18 | disposition home or self-care (01) ==
LOC: MADERS 04:47
DX: J18.9 Pneumonia, unspecified organism (principal); R53.83 Other fatigue; M79.10 Myalgia, unspecified site; I25.10 Atherosclerotic heart disease of native coronary artery without angina pectoris; F17.290 Nicotine dependence, other tobacco product, uncomplicated; Z95.5 Presence of coronary angioplasty implant and graft; Z79.899 Other long term (current) drug therapy
CPT/HCPCS: 70450; 71045; 80053; 81001; 85025; 87040; 87400; 93005; 96374; J0696

== ENCOUNTER 2024-05-09 17:18 | Inpatient (IN) | payer MEDICARE ==
[2024-05-09] MEDS: Doxycycline 100 MG CAP PO SCH (21:22)
[2024-05-09] MEDS: Cefdinir 300 MG CAP PO SCH (21:22)
[2024-05-09] MEDS: Rifaximin 550 MG TAB PO SCH (21:22)
[2024-05-09 22:18] VITALS: BMI 24.1
[2024-05-10 05:18] LABS: ALT (SGPT) 37 U/L (8-55); AST (SGOT) 79 U/L (5-34); Albumin 1.9 g/dL (3.5-5.0); Alkaline Phosphatase 177 U/L (40-110); Anion Gap 9 mmol/L (10-20); BUN (Urea Nitrogen) 10 mg/dL (8.4-25.7); Bilirubin, Total 1.1 mg/dL (0.2-1.2); Calc. Creatinine Clearance 144 mL/min (70-130); Calcium 7.3 mg/dL (7.8-10.44); Chloride 107 mmol/L (98-107); Estimated GFR 109; Globulin 4.4 g/dL (2.4-3.5); Glucose 103 mg/dL (70-105); Potassium 4.2 mmol/L (3.5-5.1); Protein, Total 6.3 g/dL (6.0-8.3); Sodium 132 mmol/L (136-145)
[2024-05-10 05:23] LABS: Carbon Dioxide 20 mmol/L (22-29)
[2024-05-10 05:33] LABS: Band 2 % (5-11); Eosinophils 9 % (0-10); Hematocrit 37.1 % (42.0-52.0); Hemoglobin 12.4 g/dL (14.0-18.0); Lymphocytes 53 % (21-51); MDiff Complete? YES; Mean Corpuscular HGB CONC 33.3 g/dL (32.0-36.0); Mean Corpuscular Hemoglobin 32.4 pg (27.0-31.0); Mean Corpuscular Volume 97.3 fl (78.0-98.0); Mean Platelet Volume 6.1 fL (7.4-10.4); Microcytosis SLIGHT = 6-15 cells (100X) (0-5/hpf); Monocytes 8 % (0-10); Neutrophil 28 % (42-75); Platelet Count 128 10x3/uL (130-400); RBC Distribution Width 13.6 % (11.5-14.5); Red Blood Cell (RBC) Count 3.81 mill/uL (4.70-6.10); White Blood Cell (WBC) Count 2.6 10x3/uL (4.8-10.8)
[2024-05-10 05:34] LABS: Hypochromia SLIGHT = 6-15 cells (100X) (0-5/hpf)
[2024-05-10] MEDS: Benzonatate 100 MG CAP PO PRN (08:11)
[2024-05-10] MEDS: Folic Acid 1 MG TAB PO SCH (08:13)
[2024-05-10] MEDS: Furosemide 40 MG TAB PO SCH (08:13)
[2024-05-10] MEDS: Sertraline 25 MG TAB PO SCH (08:13)
[2024-05-10] MEDS: Thiamine 100 MG TAB PO SCH (08:13)
[2024-05-10] MEDS: Lactulose 20 GM (30 mL) UDCUP PO SCH (08:14)
[2024-05-10] MEDS: Amlodipine 5 MG TAB PO SCH (08:18)
[2024-05-10] MEDS: Ibuprofen 600 MG TAB PO PRN (11:50)
[2024-05-10 12:03] VITALS: BMI 23.8
[2024-05-10] MEDS: Enoxaparin 40 MG (0.4 mL) SYRINGE SC SCH (20:43)
[2024-05-10] MEDS: Lorazepam 1 MG TAB PO PRN (20:43)
[2024-05-11 07:15] VITALS: BP 117/73; TEMP 98.5
== END 2024-05-11 09:15 | disposition left against medical advice (07) | DRG 945 ==
LOC: MADMS 20:12
PROVIDERS: ADMIT Family Medicine; ATTEND Family Medicine
PROC: F07Z9ZZ Gait Training/Functional Ambulation Treatment (ICD-10-PCS; principal; 2024-05-10)
DX: R53.81 Other malaise (principal); J18.9 Pneumonia, unspecified organism; I50.32 Chronic diastolic (congestive) heart failure; L03.116 Cellulitis of left lower limb; I25.10 Atherosclerotic heart disease of native coronary artery without angina pectoris; K74.60 Unspecified cirrhosis of liver; F10.90 Alcohol use, unspecified, uncomplicated; D63.8 Anemia in other chronic diseases classified elsewhere; S81.809D Unspecified open wound, unspecified lower leg, subsequent encounter; Z79.899 Other long term (current) drug therapy; Z95.5 Presence of coronary angioplasty implant and graft
CPT/HCPCS: 36415; 80053; 82140; 85025; J1650

== ENCOUNTER 2024-09-30 01:08 | Emergency (ER) | payer MEDICARE ==
[2024-09-30] MEDS ORDERED: CEFAZOLIN 2 GM VIAL ONE (02:15)
[2024-09-30 02:28] LABS: ALT (SGPT) 28 U/L (Less than 45); AST (SGOT) 57 U/L (11-34); Albumin 2.2 g/dL (3.1-4.5); Alcohol Less than 10.0 mg/dL (Less than 10); Alkaline Phosphatase 159 U/L (40-110); Anion Gap 10 mmol/L (10-20); BUN (Urea Nitrogen) 14 mg/dL (8.4-25.7); Bilirubin, Total 1.7 mg/dL (0.3-1.2); Calc. Creatinine Clearance 0 mL/min (70-130); Calcium 7.8 mg/dL (7.8-10.44); Carbon Dioxide 20 mmol/L (22-29); Chloride 114 mmol/L (98-107); Estimated GFR 109; Glucose 100 mg/dL (70-105); Lipase 21 U/L (8-78); Potassium 3.5 mmol/L (3.5-5.1); Protein, Total 7.2 g/dL (6.0-8.3); Sodium 140 mmol/L (136-145); Troponin I 0.029 ng/mL (< 0.028)
[2024-09-30 02:29] LABS: Band 2 % (5-11); Eosinophils 10 % (0-10); Hematocrit 35.1 % (42.0-52.0); Hemoglobin 11.5 g/dL (14.0-18.0); Lymphocytes 23 % (21-51); MDiff Complete? YES; Mean Corpuscular HGB CONC 32.8 g/dL (32.0-36.0); Mean Corpuscular Hemoglobin 32.6 pg (27.0-31.0); Mean Corpuscular Volume 99.5 fl (78.0-98.0); Mean Platelet Volume 6.7 fL (7.4-10.4); Monocytes 8 % (0-10); Neutrophil 57 % (42-75); Platelet Count 117 10x3/uL (130-400); Poikilocytosis SLIGHT = 6-15 cells (100X) (0-5/hpf); RBC Distribution Width 13.2 % (11.5-14.5); Red Blood Cell (RBC) Count 3.52 mill/uL (4.70-6.10); White Blood Cell (WBC) Count 4.4 10x3/uL (4.8-10.8)
[2024-09-30] MEDS ORDERED: Sodium Chloride 0.9% 1,000 ML ONE (02:43)
[2024-09-30] MEDS ORDERED: Morphine 4 MG/ML VIAL ONE (02:48)
[2024-09-30 04:36] LABS: Bilirubin Small (Negative); Blood, Urine Small (Negative); Glucose, Urine (Dipstick) 100 mg/dL (Negative); Ketone, Urine Negative (Negative); Leukocyte Negative (Negative); Nitrite Negative (Negative); Protein, Urine (Dipstick) Trace mg/dL (Neg-Trace); Urobilinogen > or = 8.0 mg/dL (Less than 2)
[2024-09-30 04:40] LABS: Bacteria/HPF Rare-Few HPF (None Seen); CAUTI Indications for Culture Dysuria,urgency,freq; Clarity Slightly Cloudy (Clear); Squamous Epithelial 0-3 HPF (0-3); Urine Culture Reflex No No; WBC/HPF 0-3 HPF (0-3)
== END 2024-09-30 05:56 | disposition short-term general hospital (02) ==
LOC: MADERS 01:08
DX: R78.81 Bacteremia (principal); L03.90 Cellulitis, unspecified; R79.89 Other specified abnormal findings of blood chemistry; E87.20 Acidosis, unspecified; F17.210 Nicotine dependence, cigarettes, uncomplicated; F17.290 Nicotine dependence, other tobacco product, uncomplicated
CPT/HCPCS: 71045; 74177; 80053; 80307; 81001; 83605; 83690; 83880; 84484; 85025; 87040; 87086; 93005; 96365; J2270; J7030

== ENCOUNTER 2024-11-21 12:38 | Emergency (ER) | payer MEDICARE ==
[~2024-11-21 12:38] MED LIST changes: -Sodium Chloride 0.9% 1,000 ML BAG ONE; -Sodium Chloride 0.9% 100 ML BAG ONE; -Sodium Chloride 0.9% 500 ML BAG ONE
[2024-11-21 13:41] LABS: #Basophils 0.2 thou/uL (0.0-0.2); #Eosinophils 0.3 thou/uL (0.0-0.7); #Lymphocytes 1.0 thou/uL (1.20-3.40); #Monocytes 0.7 thou/uL (0.11-0.59); #Neutrophils 4.7 thou/uL (1.40-6.50); %Basophils 2.3 % (0.0-1.0); %Eosinophils 4.9 % (0.0-10.0); %Lymphocytes 14.5 % (21.0-51.0); %Monocytes 10.4 % (0.0-10.0); %Neutrophils 67.8 % (42.0-75.0); Hematocrit 33.7 % (42.0-52.0); Hemoglobin 11.5 g/dL (14.0-18.0); Mean Corpuscular Hemoglobin 33.8 pg (27.0-31.0); Mean Corpuscular Volume 99.0 fl (78.0-98.0); Platelet Count 165 10x3/uL (130-400); Red Blood Cell (RBC) Count 3.41 mill/uL (4.70-6.10); White Blood Cell (WBC) Count 6.9 10x3/uL (4.8-10.8)
[2024-11-21 14:00] LABS: ALT (SGPT) 22 U/L (Less than 45); AST (SGOT) 41 U/L (11-34); Albumin 2.0 g/dL (3.1-4.5); Alkaline Phosphatase 120 U/L (40-110); Anion Gap 9 mmol/L (10-20); BUN (Urea Nitrogen) 10 mg/dL (8.4-25.7); Bilirubin, Total 2.1 mg/dL (0.3-1.2); Calc. Creatinine Clearance 0 mL/min (70-130); Calcium 7.4 mg/dL (7.8-10.44); Carbon Dioxide 22 mmol/L (22-29); Chloride 110 mmol/L (98-107); Globulin 4.1 g/dL (2.4-3.5); Glucose 127 mg/dL (70-105); Potassium 3.1 mmol/L (3.5-5.1); Sodium 138 mmol/L (136-145)
[2024-11-21] MEDS ORDERED: Cefepime 2 GM VIAL ONE (15:31)
[2024-11-21] MEDS ORDERED: Sodium Chloride 0.9% 250 ML 500 ML ONE (16:15)
== END 2024-11-21 18:12 | disposition home or self-care (01) ==
LOC: MADERS 12:38
DX: L03.116 Cellulitis of left lower limb (principal); I25.10 Atherosclerotic heart disease of native coronary artery without angina pectoris; F17.210 Nicotine dependence, cigarettes, uncomplicated; Z95.5 Presence of coronary angioplasty implant and graft
CPT/HCPCS: 80053; 83605; 85025; 87040; 96365; 96366; 96367; J0692; J3373; J7050; Q9967

== ENCOUNTER 2025-01-04 02:53 | Emergency (ER) | payer MEDICARE ==
[2025-01-04] MEDS ORDERED: Cefepime 2 GM VIAL ONE (03:50)
[2025-01-04 04:07] LABS: #Basophils 0.1 thou/uL (0.0-0.2); #Eosinophils 1.0 thou/uL (0.0-0.7); #Lymphocytes 1.3 thou/uL (1.20-3.40); #Monocytes 0.3 thou/uL (0.11-0.59); #Neutrophils 1.9 thou/uL (1.40-6.50); %Basophils 1.9 % (0.0-1.0); %Eosinophils 21.4 % (0.0-10.0); %Lymphocytes 28.4 % (21.0-51.0); %Monocytes 6.5 % (0.0-10.0); %Neutrophils 41.8 % (42.0-75.0); Hematocrit 34.1 % (42.0-52.0); Hemoglobin 11.4 g/dL (14.0-18.0); Mean Corpuscular Hemoglobin 32.4 pg (27.0-31.0); Mean Corpuscular Volume 97.0 fl (78.0-98.0); Platelet Count 184 10x3/uL (130-400); Red Blood Cell (RBC) Count 3.52 mill/uL (4.70-6.10); White Blood Cell (WBC) Count 4.5 10x3/uL (4.8-10.8)
[2025-01-04 04:25] LABS: ALT (SGPT) 24 U/L (Less than 45); AST (SGOT) 70 U/L (11-34); Albumin 2.1 g/dL (3.1-4.5); Alkaline Phosphatase 184 U/L (40-110); Anion Gap 14 mmol/L (10-20); BUN (Urea Nitrogen) 15 mg/dL (8.4-25.7); Bilirubin, Total 1.4 mg/dL (0.3-1.2); Calc. Creatinine Clearance 0 mL/min (70-130); Calcium 7.7 mg/dL (7.8-10.44); Carbon Dioxide 16 mmol/L (22-29); Chloride 112 mmol/L (98-107); Globulin 4.4 g/dL (2.4-3.5); Glucose 82 mg/dL (70-105); Potassium 3.6 mmol/L (3.5-5.1); Sodium 138 mmol/L (136-145)
[2025-01-04] MEDS ORDERED: Calcium Carbonate 500 MG ChewTAB ONE (05:44)
== END 2025-01-04 06:34 | disposition home or self-care (01) ==
LOC: MADERS 02:53
DX: B87.89 Myiasis of other sites (principal); E88.09 Other disorders of plasma-protein metabolism, not elsewhere classified; L60.1 Onycholysis; L03.032 Cellulitis of left toe; E87.20 Acidosis, unspecified; R74.01 Elevation of levels of liver transaminase levels; I25.10 Atherosclerotic heart disease of native coronary artery without angina pectoris; F17.210 Nicotine dependence, cigarettes, uncomplicated
CPT/HCPCS: 73630; 80053; 83605; 85025; 86140; 87040; 87070; 87205; J0692; J3373; 36415; 96365; 96366; 96367

== ENCOUNTER 2025-03-02 12:00 | Emergency (ER) | payer MEDICARE ==
[2025-03-02] MEDS ORDERED: cefTRIAXone (ROCEPHIN) 2 GM VIAL ONE ×2 (13:09→13:20)
[2025-03-02] MEDS ORDERED: Acetaminophen 325 MG TAB ONE (13:09)
[2025-03-02] MEDS ORDERED: Azithromycin 500 MG VIAL ONE (13:09)
[2025-03-02 13:27] LABS: ALT (SGPT) 23 U/L (Less than 45); AST (SGOT) 50 U/L (11-34); Albumin 1.9 g/dL (3.1-4.5); Alkaline Phosphatase 186 U/L (40-110); Anion Gap 13 mmol/L (10-20); BUN (Urea Nitrogen) 16 mg/dL (8.4-25.7); Bilirubin, Total 3.3 mg/dL (0.3-1.2); Calc. Creatinine Clearance 0 mL/min (70-130); Calcium 7.5 mg/dL (7.8-10.44); Carbon Dioxide 16 mmol/L (22-29); Chloride 109 mmol/L (98-107); Globulin 4.1 g/dL (2.4-3.5); Glucose 95 mg/dL (70-105); Potassium 3.4 mmol/L (3.5-5.1); Sodium 135 mmol/L (136-145)
[2025-03-02 13:28] LABS: Troponin I 0.039 ng/mL (< 0.028)
[2025-03-02 13:31] LABS: Hematocrit 36.6 % (42.0-52.0); Hemoglobin 12.7 g/dL (14.0-18.0); Mean Corpuscular Hemoglobin 33.2 pg (27.0-31.0); Mean Corpuscular Volume 95.5 fl (78.0-98.0); Platelet Count 115 10x3/uL (130-400); Red Blood Cell (RBC) Count 3.84 mill/uL (4.70-6.10); White Blood Cell (WBC) Count 12.0 10x3/uL (4.8-10.8)
[2025-03-02 13:36] LABS: MDiff Complete? YES; Manual Diff?? YES
[2025-03-02 13:37] LABS: Platelet Adequacy Comment Appears Decreased
[2025-03-02] MEDS ORDERED: Aspirin Chewable 81 MG TAB ONE (13:53)
[2025-03-02 14:05] LABS: Glucose, Urine (Dipstick) 100 mg/dL (Negative); Leukocyte Negative (Negative); Protein, Urine (Dipstick) 30 mg/dL (Neg-Trace); Specific Gravity, Urine 1.020 (1.005-1.030)
[2025-03-02 14:13] LABS: Bacteria/HPF Rare-Few HPF (None Seen); CAUTI Indications for Culture Dysuria,urgency,freq; Mucous/LPF 1+ LPF (<2+); WBC/HPF 0-3 HPF (0-3)
[2025-03-02 14:15] LABS: Urine Culture Reflex No No
[2025-03-02 16:56] LABS: Cocaine Metabolite Screen Negative (Negative); THC/Cannabinoid Screen Negative (Negative); Tricyclic Screen Negative (Negative)
== END 2025-03-02 17:03 | disposition short-term general hospital (02) ==
LOC: MADERS 12:00
DX: A41.9 Sepsis, unspecified organism (principal); J18.9 Pneumonia, unspecified organism; R09.02 Hypoxemia; R79.89 Other specified abnormal findings of blood chemistry; I25.10 Atherosclerotic heart disease of native coronary artery without angina pectoris; Z95.9 Presence of cardiac and vascular implant and graft, unspecified; F17.210 Nicotine dependence, cigarettes, uncomplicated
CPT/HCPCS: 71045; 80053; 80306; 81001; 83605; 83880; 84484; 85025; 87040; 87077; 87086; 87428; 93005; 94760; 96365; 96366; 96368; 99285; J0456; J0696; J7030; 36415